=== PATIENT | female | born 1965 | race African-American/Black ===

== ENCOUNTER 2020-03-15 21:04 | Emergency (ER) | payer OTHER ==
[2020-03-15] MEDS ORDERED: BUFFERED LIDOCAINE 10 ML SYRINGE SUBQ STA (21:21)
[2020-03-15] MEDS ORDERED: TETANUS/DIPHTHERIA/PERTUSSIS 0.5 ML SYRINGE IM ONE (21:21)
[2020-03-15] MEDS ORDERED: AMOX/CLAV 875 MG/125 MG TABLET PO STA (21:21)
--- NOTE | 2020-03-15 21:25 | ED Physician Documentation ---
PD HPI WOUND RECHECK - Stated complaint Stated Complaint: DOG BITE RT HAND - Chief complaint Chief Complaint: Wound - Histroy obtained from History obtained from: Patient (54-year-old woman with unknown tetanus status was bitten by her own dog once to the right hand at home just prior to arrival. Immunization status of the dog is not quite clear either.) Review of Systems Constitutional: reports: Reviewed and negative Eyes: reports: Reviewed and negative Nose: reports: Reviewed and negative PD PAST MEDICAL HISTORY - Present Medications Home Medications: Ambulatory Orders Medication Instructions Recorded Confirmed Amoxicillin/Potassium Clav 10 ml PO BID 5 Days #100 ml 03/15/20 [Amox-Clav 400-57 mg/5 ml Susp] - Allergies Allergies/Adverse Reactions: Allergies Allergy/AdvReac Type Severity Reaction Status Date / Time No Known Drug Allergies Allergy Verified 03/15/20 21:27 PD ED PE NORMAL - Vitals Vital signs reviewed: Yes - General General: Alert and oriented X 3, No acute distress - Extremities Extremities: Other (There is a single 1 cm laceration of the dorsal right hand in the first webspace that is gaping without distal neurovascular compromise) - Neuro Neuro: Alert and oriented X 3, Normal speech Results - Vitals Vitals: Vital Signs - 24 hr 03/15/20 21:14 Temperature 37.0 C Heart Rate 82 Respiratory 18 Rate Blood Pressure 151/78 H O2 Saturation 97 Oxygen O2 Source Room air Procedures - Laceration (location) R hand Length in cm: 1 Wound type: Into subcut fat Neurovascular status: Sensory intact, Motor intact, Vascular intact Anesthesia: Lidocaine 1%, With bicarb Wound Preparation: Hibiclens, Irrigated copiously NS Skin layer closure: Nylon, Interrupted, Size #-0 - enter number (4-0), Sutures - enter # (1) Other: Tetanus booster given Complexity: Simple Departure - Departure Disposition: 01 Home, Self Care Clinical Impression: Animal bite with open wound Condition: Good Record reviewed to determine appropriate education?: Yes Instructions: ED Bite Animal General Prescriptions: Amoxicillin/Potassium Clav [Amox-Clav 400-57 mg/5 ml Susp] 10 ml PO BID 5 Days #100 ml Comments: Come back for any signs of infection which would include: Redness, swelling, drainage, increased pain, or fevers. You can wash it soap and water. Keep it covered and moist with bacitracin ointment which is available over the counter; avoid neosporin. Follow-up with your physician in 10 - 14 days for suture removal.
[2020-03-15] MEDS ORDERED: AMOX/CLAV 200 MG/28.5 MG/5 ML SYRINGE PO STA (21:37)
[2020-03-15 21:51] VITALS: BP 144/90
== END 2020-03-15 21:50 | disposition home or self-care (01) ==
LOC: ED 21:04
DX: S61.411A Laceration without foreign body of right hand, initial encounter (principal); W54.0XXA Bitten by dog, initial encounter; Y93.89 Activity, other specified; Y92.009 Unspecified place in unspecified non-institutional (private) residence as the place of occurrence of the external cause
CPT/HCPCS: 12001; 90471; 90715; 99283; A9270

== ENCOUNTER 2021-04-29 19:03 | Emergency (ER) | payer OTHER ==
[2021-04-29] MEDS ORDERED: IBUPROFEN 600 MG TABLET PO STA (20:07)
[2021-04-29] MEDS ORDERED: ACETAMINOPHEN 325 MG TABLET PO STA (20:07)
--- NOTE | 2021-04-29 23:27 | ED Physician Documentation ---
PD HPI URI - Stated complaint Stated Complaint: BODY ACHES/N/F/HEADACHE/D - Chief complaint Chief Complaint: Fever - History obtained from History obtained from: Patient - History of Present Illness Timing - onset: Yesterday Timing details: Abrupt onset, Still present Associated symptoms: Fever, Chills, Dry cough, NVD (nausea without vomiting. Some loose stool.), Other (general body aches and pains, some headache. Her son with same symptoms. No noted ill exposures, but they do own/run a local small restaurant.) Contributing factors: Unimmunized. No: Sick contact, Immunocompromised, COPD / asthma Similar symptoms before: Has not had sx before Recently seen: Not recently seen Review of Systems Constitutional: reports: Fever, Chills, Myalgias, Fatigue Nose: reports: Congestion Throat: denies: Oral lesions / sores, Sore throat Respiratory: reports: Dyspnea, Cough GI: reports: Nausea, Diarrhea (loose stools). denies: Vomiting, Constipation Skin: denies: Rash, Lesions Neurologic: reports: Generalized weakness, Headache. denies: Near syncope, Confused, Altered mental status, Head injury PD PAST MEDICAL HISTORY - Past Medical History Cardiovascular: None Respiratory: None Neuro: None Endocrine/Autoimmune: None - Present Medications Home Medications: Ambulatory Orders Medication Instructions Recorded Confirmed Amoxicillin/Potassium Clav 10 ml PO BID 5 Days #100 ml 03/15/20 [Amox-Clav 400-57 mg/5 ml Susp] Albuterol Sulf [Ventolin Hfa 2 - 3 puffs INH QID 20 Days #1 04/30/21 Inhaler] inhaler Benzonatate [Tessalon] 100 mg PO TID PRN #20 cap 04/30/21 dexAMETHasone [Decadron] 4 mg PO DAILY #5 tablet 04/30/21 - Allergies Allergies/Adverse Reactions: Allergies Allergy/AdvReac Type Severity Reaction Status Date / Time No Known Drug Allergies Allergy Verified 04/29/21 19:42 - Social History Does the pt smoke?: No Smoking Status: Never smoker PD ED PE NORMAL - Vitals Vital signs reviewed: Yes - General General: Alert and oriented X 3, Well developed/nourished, Other (appears ill but conversant and appropriate. ) Results - Vitals Vitals: Oxygen O2 Source Room air PD MEDICAL DECISION MAKING - ED course Complexity details: reviewed results (not yet available. ), considered differential (seems very COVID-like symptoms. Will test for that. Also could be RSV or other viral illness. ), d/w patient Departure - Departure Disposition: 01 Home, Self Care Clinical Impression: Fever Qualifiers: Fever type: unspecified Qualified Code(s): R50.9 - Fever, unspecified Upper respiratory infection Qualifiers: URI type: unspecified URI Qualified Code(s): J06.9 - Acute upper respiratory infection, unspecified Condition: Stable Record reviewed to determine appropriate education?: Yes Instructions: ED Upper Resp Infec No Abx Tx Prescriptions: dexAMETHasone [Decadron] 4 mg PO DAILY #5 tablet Benzonatate [Tessalon] 100 mg PO TID PRN #20 cap PRN Reason: Cough Albuterol Sulf [Ventolin Hfa Inhaler] 2 - 3 puffs INH QID 20 Days #1 inhaler Comments: Stay well-hydrated. Tylenol or ibuprofen every 4-6 hours regularly for the next couple of days to help with fevers and pains. Decadron steroid anti-inflammatory to help with airway inflammation and therefore less coughing and easier breathing. Also add albuterol inhaler 2 to 3 puffs 4 times a day for the next several days to week to help as well. Benzonatate (Tessalon) if needed for cough. Benadryl or other cough medicines can help somewhat as well. Your Covid test is pending and should result the next day or 2. You have a Covid test pending. You need to self quarantine until the result is done and negative. Do not leave your house. Do not get near anybody. The results should be done in 48 to 72 hours, but sometimes longer. We will call with a positive result, the fastest way to get a negative result for confirmation though is to go to the hospital website at [email or web address], click on the my [facility] tab and sign up for the patient portal. If any friends or family get sick and would like to have a Covid test done, but do not have signs or symptoms that would necessitate being hospitalized, we encourage testing through our coronavirus swabbing station, call [phone] to schedule an appointment. If your Covid test is positive, you could consider returning to the ER in the next few days during the daytime between 7 and 5 or so when our pharmacist is in the house for consideration of the monoclonal antibody infusion. This tries to help your body fight off the infection a little bit better and reduce his symptoms to some degree. You likely can research about the monoclonal antibody medications on the CDC website for treatments of Covid. If your Covid test comes back negative, and presume you have a different viral type illness and would still benefit with the initial treatments but he would not need the monoclonal antibodies for Covid obviously. Discharge Date/Time: 04/30/21 01:29
[2021-04-29] MEDS ORDERED: CHERRY SYRUP 10 ML UDC PO ONE (23:56)
[2021-04-29] MEDS ORDERED: DEXAMETHASONE 10 MG/ML VIAL PO STA (23:56)
[2021-04-29] MEDS ORDERED: BENZONATATE 100 MG CAPSULE PO STA (23:56)
[2021-04-29] MEDS ORDERED: diphenhydrAMINE ELIXIR 25 MG/10 ML UDC PO STA (23:56)
[2021-04-30 01:05] VITALS: BP 117/75
== END 2021-04-30 01:29 | disposition home or self-care (01) ==
LOC: ED 19:03
DX: U07.1 COVID-19 (principal); J06.9 Acute upper respiratory infection, unspecified
CPT/HCPCS: 87635; 99283; A9270

== ENCOUNTER 2023-07-07 09:39 | Emergency (ER) | payer MEDICAID, OTHER ==
[2023-07-07 10:02] VITALS: BP 150/88; O2SAT 99
[2023-07-07 10:30] LABS: BASOPHILS % (AUTO) 0.4 %; EOSINOPHILS # (AUTO) 0.3 10^3/uL (0.0-0.7); EOSINOPHILS % (AUTO) 2.8 %; HCT - HEMATOCRIT 42.7 % (37.0-47.0); HGB - HEMOGLOBIN 13.5 g/dL (12.0-16.0); LYMPHOCYTES % (AUTO) 18.5 %; MEAN CORPUSCULAR HEMOGLOBIN 28.2 pg (27.0-31.0); MEAN CORPUSCULAR HGB CONC 31.6 g/dL (32.0-36.0); MEAN CORPUSCULAR VOLUME 89.1 fL (81.0-99.0); MEAN PLATELET VOLUME 12.2 fL (7.9-10.8); MONOCYTES # (AUTO) 0.8 10^3/uL (0.0-1.0); MONOCYTES % (AUTO) 7.1 %; NEUTROPHILS # (AUTO) 7.6 10^3/uL (1.5-6.6); NEUTROPHILS % (AUTO) 70.7 %; PLT - PLATELET COUNT 222 10^3/uL (130-450); RED BLOOD COUNT 4.79 10^6/uL (4.20-5.40); RED CELL DISTRIBUTION WIDTH 13.3 % (12.0-15.0); WHITE BLOOD COUNT 10.7 x10^3/uL (4.8-10.8)
[2023-07-07 10:42] LABS: ALBUMIN 4.3 g/dL (3.2-5.5); ALBUMIN/GLOBULIN RATIO 1.2 (1.0-2.2); BILIRUBIN,TOTAL 0.6 mg/dL (0.2-1.0); CALCIUM 10.2 mg/dL (8.5-10.3); CREATININE 0.8 mg/dL (0.6-1.3); POTASSIUM 3.8 mmol/L (3.5-4.5); TOTAL PROTEIN 7.8 g/dL (6.4-8.9)
[2023-07-07 12:26] LABS: BILIRUBIN,URINE NEGATIVE (NEGATIVE); CLARITY,URINE CLEAR (CLEAR); GLUCOSE, URINE (UA) NEGATIVE (NEGATIVE); KETONES,URINE (UA) 15 mg/dL (NEGATIVE); LEUKOCYTE ESTERASE, URINE NEGATIVE (NEGATIVE); NITRITE,URINE NEGATIVE (NEGATIVE); OCCULT BLOOD,URINE NEGATIVE (NEGATIVE); PROTEIN,URINE TRACE mg/dL (NEGATIVE); UROBILINOGEN,URINE 0.2 (NORMAL) E.U./dL (NORMAL)
[2023-07-07] MEDS ORDERED: SODIUM CHLORIDE 0.9% 1,000 ML IV STA (12:26)
--- NOTE | 2023-07-07 12:32 | ED Physician Documentation ---
History of Present Illness - Stated complaint Stated Complaint: ABD PX - Chief complaint Chief Complaint: Abd Pain - Additonal information Additional information: 57-year-old female presents to the emergency department for evaluation of left lower abdominal pain has been ongoing now for 1 month. Its been fairly constant but yesterday it was at its worst and she reported a fever of 101. She has had some intermittent constipation. No urinary symptoms. No nausea or vomiting. Past surgical history includes a lap band and then subsequent removal. The Lap- Band was placed for gastritis/GERD but it made it worse. She is also had a part ial hysterectomy retaining her ovaries. She denies any unintended weight loss or night sweats. No history of previous colonoscopy. She took Tylenol without relief of symptoms. Takes no prescribed medications. Review of Systems Constitutional: reports: Fever Throat: reports: Reviewed and negative Cardiac: reports: Reviewed and negative Respiratory: reports: Reviewed and negative GI: reports: Abdominal Pain, Constipation. denies: Nausea, Vomiting, Bloody / black stool : denies: Dysuria Skin: reports: Reviewed and negative PD PAST MEDICAL HISTORY - Past Medical History Past Medical History: No Cardiovascular: None Respiratory: None Neuro: None Endocrine/Autoimmune: None - Past Surgical History Past Surgical History: Yes /[employer]: section - Present Medications Home Medications: Ambulatory Orders Medication Instructions Recorded Confirmed Amoxicillin/Potassium Clav 10 ml PO BID 5 Days #100 ml 03/15/20 [Amox-Clav 400-57 mg/5 ml Susp] Albuterol Sulf [Ventolin Hfa 2 - 3 puffs INH QID 20 Days #1 04/30/21 Inhaler] inhaler Benzonatate [Tessalon] 100 mg PO TID PRN #20 cap 04/30/21 dexAMETHasone [Decadron] 4 mg PO DAILY #5 tablet 04/30/21 - Allergies Allergies/Adverse Reactions: Allergies Allergy/AdvReac Type Severity Reaction Status Date / Time No Known Drug Allergies Allergy Verified 07/07/23 09:57 - Social History Does the pt smoke?: No Smoking Status: Never smoker Does the pt drink ETOH?: No Does the pt have substance abuse?: No - Immunizations Immunizations are current?: Yes - POLST Patient has POLST: No PD ED PE NORMAL - General General: Alert and oriented X 3, No acute distress - Neck Neck: Supple, no meningeal sign, No JVD - Cardiac Cardiac: RRR, No murmur - Respiratory Respiratory: No respiratory distress - Abdomen Abdomen: Normal bowel sounds, Soft. No: Non tender (focal LLQ tenderness withotu guarding or rebound) Results - Vitals Vitals: Vital Signs - 24 hr 07/07/23 09:57 Temperature 36.8 C Heart Rate 74 Respiratory 18 Rate Blood Pressure 150/88 H O2 Saturation 99 Oxygen O2 Source Room air - Labs Labs: Laboratory Tests 07/07/23 07/07/23 07/07/23 10:11 10:11 12:10 WBC 10.7 RBC 4.79 Hgb 13.5 Hct 42.7 MCV 89.1 MCH 28.2 MCHC 31.6 L RDW 13.3 Plt Count 222 MPV 12.2 H Neut # (Auto) 7.6 H Lymph # (Auto) 2.0 [place] # (Auto) 0.8 Eos # (Auto) 0.3 Baso # (Auto) 0.0 Absolute Nucleated RBC 0.00 Nucleated RBC % 0.0 Sodium 141 Potassium 3.8 Chloride 104 Carbon Dioxide 31 Anion Gap 6.0 BUN 13 Creatinine 0.8 Estimated GFR (MDRD) 89 Glucose 82 Calcium 10.2 Total Bilirubin 0.6 AST 15 ALT 18 Alkaline Phosphatase 95 Total Protein 7.8 Albumin 4.3 Globulin 3.5 Albumin/Globulin Ratio 1.2 Lipase 13 Urine Color YELLOW Urine Clarity CLEAR Urine pH 6.0 Ur Specific [place] 1.025 Urine Protein TRACE Urine Glucose (UA) NEGATIVE Urine Ketones 15 H Urine Occult Blood NEGATIVE Urine Nitrite NEGATIVE Urine Bilirubin NEGATIVE Urine Urobilinogen 0.2 (NORMAL) Ur Leukocyte Esterase NEGATIVE Ur Microscopic Review NOT INDICATED Urine Culture Comments NOT INDICATED PD Medical Decision Making - ED course Complexity details: reviewed results, re-evaluated patient, considered differential, d/w patient ED course: 57-year-old female presented to the emergency department for evaluation of left lower quadrant abdominal pain has been ongoing for 1 month. Reports significantly worse over the last 48 hours with fever yesterday. No vomiting. Initial labs in the emergency department showed no leukocytosis or worrisome anemia. Her electrolytes are essentially unremarkable. Her urine showed some small ketones but no markers of infection. Given her age as well as the chronicity of the complaint and recent fever I had ordered a CT of the abdomen. My differentials included cancer, mass, diverticulitis, urinary or renal calculi,. After patient had been waiting for an amount of time to get the CT scan she asked to speak with me as a provider and stated that she did not want to wait anymore. She is concerned about the cost of associated imaging as well as her concerned that she is going to begin new insurance benefits on 23 July and she is afraid that any pre-existing conditions would not allow her to be covered by insurance. I implored her to make an alternative decision focusing more on her health then on finances but she could not be convinced to stay. She understands that by leaving we have an unknown cause of lower left abdominal discomfort with fever and without proper diagnosis and treatment this could result in permanent pain disability and even . She was advised that she could return at any time for reevaluation with no questions asked Departure - Departure Disposition: Against Medical Advice Clinical Impression: LLQ abdominal pain Condition: Stable Record reviewed to determine appropriate education?: Yes Comments: You are seen today in the emergency department because for a month you have been having left lower quadrant abdominal pain. You also reported a fever yesterday. The labs initially obtained in the emergency department did not show any worrisome findings. However as I discussed with you the differential or possible causes for your abdominal pain includes serious conditions such as abdominal tumors, cancer, diverticulitis, urinary stones, bowel obstructions as well as severe infection. You were offered CT imaging to further evaluate the cause of your pain but you have declined to stay for imaging and are requesting to be discharged AGAINST MEDICAL ADVICE. I encourage you to return immediately to the ER if you have any new or worsening symptoms. You will be treated without any questions asked Forms: PCP List
[2023-07-07] MEDS ORDERED: iohexoL-300 100 ML VIAL IVP ONE (14:13)
--- NOTE | 2023-07-07 15:19 | CT Report ---
PROCEDURE: ABDOMEN/PELVIS W INDICATIONS: LLQ pain one month; fever CONTRAST: 100ml omni 300 TECHNIQUE: After the administration of intravenous contrast, 5 mm thick sections acquired from the diaphragms to the symphysis. 5 mm thick coronal and sagittal reformats were acquired. For radiation dose reducti on, the following was used: automated exposure control, adjustment of mA and/or kV according to lee ent size. COMPARISON: None FINDINGS: Image quality: Excellent. Lung bases and heart: Unremarkable. Liver: No solid mass. Subcentimeter hypodensities, too small to actually characterize and could repre sent simple cysts. Gallbladder and biliary tree: No radiopaque stones or wall thickening. No biliary dilation. Spleen: No splenomegaly. Pancreas: No pancreatic ductal dilation. Adrenals: No adrenal nodule. Kidneys and ureters: No hydronephrosis. No renal cystic lesion which requires follow up. No solid mas s. Right renal simple cyst. Bowel and peritoneum: Small hiatal hernia. No bowel distension. No pathologic free fluid. Diverticuli tis. Wall thickening and inflammatory changes surrounding the distal descending and sigmoid colon, co nsistent with acute diverticulitis. No organized fluid collections or rectal gas. Lymph nodes: No central or retroperitoneal adenopathy. Vessels: No infrarenal aortic aneurysm. Atherosclerotic vascular calcifications. PELVIS Reproductive organs: Unremarkable. Bladder: Decompressed, limiting evaluation. Pelvic lymph nodes: No pelvic adenopathy by size criteria. Bones: No aggressive osseous abnormality. Degenerative changes of the spine. Grade I anterolisthesis of L5 on S1. Other: No significant ventral or inguinal hernia. IMPRESSION: Distal descending and proximal sigmoid colon acute diverticulitis. No organized fluid collections or extraluminal gas. Reviewed by: Kaiser Kendrick MD on 07/07/2023 3:18 PM PST Approved by: Kaiser Kendrick MD on 07/07/2023 3:18 PM PST Station ID: [id number]
== END 2023-07-07 15:58 | disposition home or self-care (01) ==
LOC: ED 09:39
DX: K57.32 Diverticulitis of large intestine without perforation or abscess without bleeding (principal)
CPT/HCPCS: 36415; 74177; 80053; 81003; 83690; 85025; 99283; 99284; Q9967; 81001; 87086

== ENCOUNTER 2023-08-09 09:24 | Outpatient (CLI) | payer MEDICAID ==
--- NOTE | 2023-08-19 08:27 | Mammography Report ---
BILATERAL DIGITAL SCREENING MAMMOGRAM 3D/2D: 08/09/2023 CLINICAL: Routine screening. Comparison is made to exams dated: 05/28/2020 mammogram - [facility] and 09/19/2015 mammogram - [facility]. There are scattered areas of fibroglandular density in both breasts (category b / 25%-50% glandular t issue). No significant masses, calcifications, or other findings are seen in either breast. There has been no significant interval change. IMPRESSION: NEGATIVE There is no mammographic evidence of malignancy. A 1 year screening mammogram is recommended. Based on the Tyrer Cuzick model (a risk assessment model) the patients lifetime risk is 13.8% and he r 10 year risk is 5.4%. According to the ACR, ACS, and NCCN guidelines, an annual breast MRI exam gilmer ng with mammogram is recommended if the patients lifetime risk is 20% or greater. This exam was interpreted at Station ID: [id number]. NOTE: For mammograms, a report in lay terms will be sent to the patient. Approximately 15% of breast malignancies will not be visualized mammographically. In the management of a palpable breast mass, a negative mammogram must not discourage biopsy of a clinically suspicious lesion. Electronically Signed By: Tyrone [email or web address]:08/18/2023 09:08:59 letter sent: No_Letter ACR BI-RADS Category 1: Negative 3341F PARENCHYMAL PATTERN: (A) - The breast(s) demonstrate(s) scattered fibroglandular densities. BI-RADS CATEGORY: (1) - 1 Mammogram [id number] 1 year screening LATERALITY: (B)
== END 2023-08-09 09:25 | disposition home or self-care (01) ==
LOC: DI 09:24
DX: Z12.31 Encounter for screening mammogram for malignant neoplasm of breast (principal); R92.323 Mammographic fibroglandular density, bilateral breasts

== ENCOUNTER 2023-09-02 08:00 | Outpatient (CLI) | payer MEDICAID ==
[2023-09-02 12:41] LABS: CALCIUM 10.1 mg/dL (8.5-10.3); CREATININE 0.8 mg/dL (0.6-1.3); POTASSIUM 3.4 mmol/L (3.5-4.5); URIC ACID 5.4 mg/dL (2.3-6.6)
== END 2023-09-02 23:59 | disposition home or self-care (01) ==
LOC: LAB.N 08:00
PROVIDERS: ATTEND Family Medicine
DX: M25.571 Pain in right ankle and joints of right foot (principal)
CPT/HCPCS: 36415; 80048; 84550; 85651

== ENCOUNTER 2023-09-02 10:11 | Outpatient (CLI) | payer MEDICAID ==
--- NOTE | 2023-09-02 15:54 | XRAY Report ---
PROCEDURE: Ankle 3+V RT INDICATIONS: RIGHT ANKLE PAIN TECHNIQUE: 3 views of the ankle were acquired. COMPARISON: None. FINDINGS: Bones: No fractures or dislocations. Ankle mortise is normally aligned. No suspicious bony lesions . Soft tissues: No tibiotalar joint effusion. Achilles tendon appears normal. IMPRESSION: No visualized acute fracture or dislocation. However, occult injury cannot be excluded. Recommend emmanuel rt interval imaging follow-up in 7-10 days as clinically indicated for additional evaluation. Reviewed by: Pinky Del Angel MD on 09/02/2023 3:53 PM PST Approved by: Pinky Del Angel MD on 09/02/2023 3:53 PM PST Station ID: [id number]
== END 2023-09-02 23:59 | disposition home or self-care (01) ==
LOC: DI.N 10:11
PROVIDERS: ATTEND Family Medicine
DX: M25.571 Pain in right ankle and joints of right foot (principal)